=== PATIENT | female | born 1965 | race Caucasian/White ===

== ENCOUNTER 2016-11-17 07:20 | Day surgery (SDC) | payer BC ==
[~2016-11-17] VITALS: Ht 167.6 cm; Wt 94.8 kg
[~2016-11-17 07:20] MED LIST: HYDR12CA PO; LABE10TAB PO; METF500T13 PO
[2016-11-17] MEDS ORDERED: LR 1,000 ML IV ONE (07:30)
[2016-11-17] MEDS ORDERED: LIDOCAINE 1% MDV 20ML VIAL SQ PRN (07:30)
[2016-11-17] MEDS ORDERED: fentaNYL 100 MCG/2 ML INJECTION (J3010) As Ordered ONE (08:32)
[2016-11-17] MEDS ORDERED: MIDAZOLAM INJ 2 MG/2 ML VIAL (J2250) As Ordered ONE (08:32)
[2016-11-17] MEDS ORDERED: BUPIVACAINE LIPOSOME/PF 1.3% 20 ML VIAL (13.3MG/ML)(EXPAREL) As Ordered ONE (09:20)
[2016-11-17] MEDS ORDERED: BUPIVACAINE HCL 0.25% 30 ML VIAL As Ordered ONE (09:20)
[2016-11-17] MEDS ORDERED: ONDANSETRON 4MG/2ML VIAL (J2405) As Ordered ONE (10:01)
[2016-11-17] MEDS ORDERED: PROPOFOL 200 MG/20 ML VIAL As Ordered ONE (10:01)
[2016-11-17] MEDS ORDERED: LIDOCAINE 2% INJ 100 MG/5 ML SDV (FOR ANES.) As Ordered ONE (10:01)
[2016-11-17] MEDS ORDERED: KETOROLAC 60 MG/2 ML VIAL (J1885) As Ordered ONE (10:01)
[2016-11-17] MEDS ORDERED: dexameTHASONE 4 MG/ML 1ML VIAL (J1100) As Ordered ONE (10:01)
[2016-11-17] MEDS ORDERED: ROCURONIUM BROMIDE 50 MG/5 ML VIAL/SYRINGE As Ordered ONE (10:01)
[2016-11-17] MEDS ORDERED: HYDROmorphone HCL 2 MG/ML 1ML VIAL (J1170) As Ordered ONE (10:05)
[2016-11-17] MEDS ORDERED: ePHEDrine SULFATE 25 MG/5 ML(5MG/ML) SYRINGE As Ordered ONE (10:17)
[2016-11-17] MEDS ORDERED: NEOSTIGMINE 10 MG/10 ML VIAL (J2710) As Ordered ONE (11:18)
[2016-11-17] MEDS ORDERED: GLYCOPYRROLATE INJ 0.2 MG/ML 2 ML VIAL As Ordered ONE (11:18)
[2016-11-17] MEDS ORDERED: LR 1,000 ML IV SCH (11:30)
[2016-11-17] MEDS ORDERED: PERCOCET 5MG/325MG TAB PO PRN (11:30)
[2016-11-17] MEDS ORDERED: ONDANSETRON 4MG/2ML VIAL (J2405) IV PRN (11:30)
[2016-11-17] MEDS ORDERED: HYDROmorphone HCL 1 MG/ML SYRINGE (J1170) IV PRN (11:30)
[2016-11-17] MEDS ORDERED: fentaNYL 100 MCG/2 ML INJECTION (J3010) IV PRN (11:30)
[2016-11-17] MEDS ORDERED: IBUPROFEN 600 MG TAB PO PRN (11:45)
[2016-11-17] MEDS ORDERED: NORCO, ANEXSIA 5/325MG TABLET (HYDROcodone/ACETAMINOPHEN) PO PRN (11:45)
[2016-11-17 12:40] VITALS: BP 165/87
--- NOTE | 2016-11-18 05:08 | RO ---
DATE OF PROCEDURE: 11/17/2016 PREOPERATIVE DIAGNOSIS: Incarcerated umbilical hernia. POSTOPERATIVE DIAGNOSIS: Incarcerated umbilical hernia. PROCEDURE PERFORMED: Repair of incarcerated umbilical hernia. SURGEON: Mike Quiroga MD WEAVER HAND LOOM: ANESTHESIA: General. INDICATIONS FOR THE PROCEDURE: The patient is a 51-year-old woman who has noticed a bulge at the right lower aspect of the umbilicus. This is not reducible. She has some soreness at times. She is now for repair of her incarcerated umbilical hernia. OPERATIVE PROCEDURE: The patient was placed under general endotracheal anesthesia. The patient's abdomen was prepped and draped in a sterile fashion. An approximately 4 cm, slightly curved infraumbilical transverse incision was made. This was deepened into the subcutaneous tissues. A hernia bulge approximately 4 cm in diameter was identified. This was dissected free from surrounding subcutaneous tissues down to the level of the fascia. The fascial defect appeared no bigger than about 1.5-2 cm. The hernia sac was opened. There was omental fat entrapped within the hernia sac. This was not reducible through the small fascial defect. The sac was more widely opened and the omentum was then transected carefully using the electrocautery to ensure hemostasis. Once the majority of the fat had been excised, the small residual portion would reduce through the fascial defect into the abdomen. The hernia sac was then excised at the level of the fascia. The hernia sac and omental fat were then sent for permanent pathology. The edges of the fascia at the fascial defect were excised. The fascial defect was approximately 2 cm in maximal diameter. The fascia appeared of good quality. The fascial defect was then closed transversely with interrupted simple sutures of #0 Ethibond. 0.25% Marcaine was infiltrated about the wound. Hemostasis was ensured with electrocautery. The umbilical skin was tacked down to the fascia with two simple sutures of #3-0 Vicryl. The deeper dermal tissues were approximated with buried #3-0 Vicryl. The skin edges were approximated with a running subcuticular #4-0 Vicryl and Steri-Strips. The patient tolerated the procedure well. She was awakened in the operating room, extubated and moved to the recovery room in stable condition. EMELINA
== END 2016-11-17 12:50 | disposition home or self-care (01) ==
LOC: M SDC 07:20
PROVIDERS: ATTEND Surgery
DX: K42.0 Umbilical hernia with obstruction, without gangrene (principal); E11.9 Type 2 diabetes mellitus without complications; I10 Essential (primary) hypertension; Z79.899 Other long term (current) drug therapy
CPT/HCPCS: 49587; 88302; J1100; J1170; J1885; J2250; J2405; J2710; J3010